=== PATIENT | male | born 1960 | race Two or more races ===

== ENCOUNTER 2020-12-04 17:51 | Emergency (ER) | payer SELFPAY ==
[~2020-12-04] VITALS: Ht 160 cm; Wt 56.7 kg
[2020-12-04 19:35] VITALS: BP 180/94
[2020-12-04] MEDS ORDERED: ACETAMINOPHEN 500 MG TAB PO ONE (20:00)
== END 2020-12-04 20:49 | disposition home or self-care (01) ==
LOC: ER 17:51
DX: S39.012A Strain of muscle, fascia and tendon of lower back, initial encounter (principal); R94.31 Abnormal electrocardiogram [ECG] [EKG]; Z88.0 Allergy status to penicillin; V49.59XA Passenger injured in collision with other motor vehicles in traffic accident, initial encounter; Y93.89 Activity, other specified; Y92.488 Other paved roadways as the place of occurrence of the external cause; Y99.8 Other external cause status
CPT/HCPCS: 72100; 72220; 93005